=== PATIENT | female | born 1955 | race Caucasian/White ===

== ENCOUNTER 2019-09-14 15:39 | Emergency (ER) | payer MEDICARE, SELFPAY ==
--- NOTE | 2019-09-14 15:47 | DI.RAD.S_ITS ---
PROCEDURE: XR FOREARM RT 2V INDICATIONS: injury TECHNIQUE: 2 views of the forearm were acquired. COMPARISON: None. FINDINGS: Bones: No fractures or dislocations. No suspicious bony lesions. Soft tissues: No suspicious soft tissue calcifications or masses. IMPRESSION: No fracture or dislocation. If clinical symptoms persist or clinical suspicion for pathology is high, a repeat examination in 7-10 days, or advanced imaging such as CT or MRI is suggested for further evaluation. Dictated by: Gerardo Winslow M.D. on 09/14/2019 at 17:19 Approved by: Gerardo Winslow M.D. on 09/14/2019 at 17:21
[2019-09-14 15:48] VITALS: BP 153/83; PULSE 91; RESP 18; TEMP 36.9; O2SAT 96; BMI 19.8
--- NOTE | 2019-09-14 16:35 | ED_ITS ---
HPI - Extremity Injury (Upper) <Flory Doshi PA-C - Last Filed: 09/14/19 20:33> General Chief Complaint: Extremity Injury, Upper Stated Complaint: thinks Fx left arm Time Seen by Provider: 09/14/19 16:10 Source: patient Mode of arrival: Ambulatory History of Present Illness HPI narrative: This 64-year-old female was pruning a thorny tree this afternoon when she felt a puncture or pain around her left wrist area. She thinks that she may have a thorn embedded. She states this is tender to touch, but she is not having difficulty moving the wrist or hand. No weakness or paresthesia. She states she had a tetanus vaccine about a year ago. She denies any other injury Related Data Home Medications Medication Instructions Recorded Confirmed budesonide-formoterol [Symbicort] 2 puff INHALATION BID 09/14/19 fluticasone propion-salmeterol INHALATION 09/14/19 [AirDuo RespiClick] levothyroxine 75 mcg PO DAILY 09/14/19 09/14/19 venlafaxine 50 mg PO DAILY 09/14/19 09/14/19 Allergies Allergy/AdvReac Type Severity Reaction Status Date / Time Sulfa (Sulfonamide Allergy Verified 09/14/19 15:48 Antibiotics) Review of Systems <Flory Doshi PA-C - Last Filed: 09/14/19 20:33> Review of Systems ROS Unobtainable: All systems reviewed & are unremarkable except as noted in HPI and below Patient History <Flory Doshi PA-C - Last Filed: 09/14/19 20:33> Medical History (Updated 09/14/19 @ 18:07 by Flory Doshi PA-C) Heart murmur (Chronic) Hypothyroidism (Chronic) Surgical History (Updated 09/14/19 @ 16:48 by Flory Doshi PA-C) No history of previous surgery (Chronic) alcohol intake frequency: 0-2 drinks per day Substance Use Type: does not use Exam <Flory Dsohi PA-C - Last Filed: 09/14/19 20:33> Narrative Exam Narrative: GENERAL APPEARANCE: Patient sitting comfortably, in no distress. LUNGS: Clear to auscultation bilaterally. HEART: Rate and rhythm regular with soft systolic ejection murmur, normal S1 and S2, no S3 or S4. DERMATOLOGIC: Proximal to the left medial wrist border there is soft tissue prominence without any visible external foreign body. Moderately tender to touch. No erythema or drainage MUSCULOSKELETAL: Full range of motion of the left hand and wrist, technical recruiter strength 5/5 NEUROVASCULAR: Left upper extremity warm and pink, pulses intact, sensation grossly intact Initial Vital Signs Initial Vital Signs: Vital Signs Temperature 98.4 F 09/14/19 15:48 Pulse Rate 91 H 09/14/19 15:48 Respiratory Rate 18 09/14/19 15:48 Blood Pressure 153/83 H 09/14/19 15:48 Pulse Oximetry 96 09/14/19 15:48 <Yolanda Avila DO - Last Filed: 09/15/19 07:53> Initial Vital Signs Initial Vital Signs: Vital Signs Temperature 98.4 F 09/14/19 15:48 Pulse Rate 91 H 09/14/19 15:48 Respiratory Rate 18 09/14/19 15:48 Blood Pressure 153/83 H 09/14/19 15:48 Pulse Oximetry 96 09/14/19 15:48 Procedures <Flory Doshi PA-C - Last Filed: 09/14/19 20:33> Foreign Body OTHER Time Out Performed: no Site: left and upper extremity Description of foreign body: other (thorn) Sedation/Analgesia: other (local, 4cc 1% lidocaine with epi) Technique: removal with forceps and incision made to facilitate removal Confirmed by:: direct visualization (Approximately 1.5 cm long foreign removed. No other foreign body found with visualization, probing, and on irrigation), patient report and palpation Complications: none Post-procedure exam: awake, alert Neurovascular: normal distal pulse, distal light touch sensation intact, distal motor function normal, no signs of compartment syndrome and no change from pre-procedure Course <Flory Doshi PA-C - Last Filed: 09/14/19 20:33> Orders Ordered: Discontinued Medications Lidocaine/Epinephrine (Xylocaine 1% W/Epi) 1 ml SUBCUT NOW ONE Stop: 09/14/19 17:24 Last Admin: 09/14/19 18:10 Dose: 1 ml Documented by: BTONER Vital Signs Vital signs: Vital Signs - 8 hr 09/14/19 15:48 Temperature 98.4 F Pulse Rate 91 H Respiratory Rate 18 Blood Pressure 153/83 H Pulse Oximetry 96 <Yolanda Avila DO - Last Filed: 09/15/19 07:53> Orders Ordered: Discontinued Medications Lidocaine/Epinephrine (Xylocaine 1% W/Epi) 1 ml SUBCUT NOW ONE Stop: 09/14/19 17:24 Last Admin: 09/14/19 18:10 Dose: 1 ml Documented by: BTONER Vital Signs Vital signs: Vital Signs - 8 hr 09/14/19 15:48 Temperature 98.4 F Pulse Rate 91 H Respiratory Rate 18 Blood Pressure 153/83 H Pulse Oximetry 96 MDM - Extremity Injury (Upper) <Flory Doshi PA-C - Last Filed: 09/14/19 20:33> Imaging Data forearm: Radiologist's impression: [address] [address] XRay Report Signed Patient: Susana Garza DMR#: [id number] : 4Acct:[id number] Age/Sex: 64 / FDate of Service: 09/14/19 Loc: ED Accession Number: [id number] Procedure: XR forearm LT 2V Ordering Provider: Yolanda Avila D.O. PROCEDURE: XR FOREARM RT 2V INDICATIONS: injury TECHNIQUE: 2 views of the forearm were acquired. COMPARISON: None. FINDINGS: Bones: No fractures or dislocations. No suspicious bony lesions. Soft tissues: No suspicious soft tissue calcifications or masses. IMPRESSION: No fracture or dislocation. If clinical symptoms persist or clinical suspicion for pathology is high, a repeat examination in 7-10 days, or advanced imaging such as CT or MRI is suggested for further evaluation. Dictated by: Gerardo Winslow M.D. on 09/14/2019 at 17:19 Approved by: Gerardo iWnslow M.D. on 09/14/2019 at 17:21 Discharge Plan Departure Patient Disposition: Home Clinical Impression: Foreign body (FB) in soft tissue Discharge Date/Time: 09/14/19 18:17 Instructions: DI for Removal of Foreign Body From Skin Activity Restrictions/Additional Instructions: Please leave this wound open and use a warm pack tonight and in the morning to help express any remaining debris. You can apply a little antibiotic ointment and covered loosely. The wound will close on its own. Please monitor for any signs of infection as we talked about and return here or see her PCP right away if any concerns or acutely worsening symptoms. Thank you for your patience with our busy emergency department today Prescriptions: No Action fluticasone propion-salmeterol [AirDuo RespiClick] 113-14 mcg/actuation aerosol powdr breath activated INHALATION RF: 0 levothyroxine 75 mcg tablet 75 mcg PO DAILY RF: 0 venlafaxine 50 mg tablet 50 mg PO DAILY RF: 0 Symbicort 80-4.5 mcg/actuation HFA aerosol inhaler 2 puff INHALATION BID RF: 0 Referrals: Radha Vallejo ND [Non-Staff] -
[2019-09-14] MEDS: LIDOCAINE 1% W/EPI 1 ML SUBCUT (18:10)
--- NOTE | 2019-09-14 18:15 | PC.NURSE ---
Thorn removed from pts left forearm by Flory Doshi. Gauze applied to wound
== END 2019-09-14 18:17 | disposition home or self-care (01) ==
PROVIDERS: Emergency Provider Internal Medicine
DX: S61.542A Puncture wound with foreign body of left wrist, initial encounter (principal)
CPT/HCPCS: 10120; 73090; 99282; 99283

== ENCOUNTER 2020-02-17 15:06 | Emergency (ER) | payer MEDICARE, OTHER, SELFPAY ==
[2020-02-17 15:11] VITALS: BP 164/100; PULSE 200; RESP 24; TEMP 36.8; O2SAT 98; BMI 20.9
[2020-02-17 15:19] VITALS: BP 169/8; PULSE 104; RESP 20; TEMP 36.9; O2SAT 96
--- NOTE | 2020-02-17 15:30 | ED_ITS ---
HPI - Arrhythmia/Palpitations General Chief Complaint: Arrhythmia/Palpitations Stated Complaint: heart issues Time Seen by Provider: 02/17/20 15:12 Source: patient Mode of arrival: Ambulatory History of Present Illness HPI narrative: 65-year-old woman with a history of hypothyroidism presents with significantly rapid heart rate and a sensation of palpations. She had been out working in her yd for approximately 15 minutes doing some heavy work digging when she felt her heart began to race. This was not associated with pain, tightness, dyspnea, diaphoresis, dizziness or lightheadedness, nausea vomiting or diarrhea. She states she has been in her usual good health until this abrupt incident. Symptoms have been going on for approximately 45 minutes prior to arrival in the emergency department by private vehicle Related Data Home Medications Medication Instructions Recorded Confirmed levothyroxine 75 mcg PO DAILY 09/14/19 02/17/20 venlafaxine 37 mg PO DAILY 09/14/19 02/17/20 fluticasone propion-salmeterol See Rx Instructions .ROUTE .COMPLEX 02/17/20 02/17/20 Allergies Allergy/AdvReac Type Severity Reaction Status Date / Time Sulfa (Sulfonamide Allergy Verified 02/17/20 15:38 Antibiotics) Review of Systems Review of Systems Narrative: All systems reviewed and are unremarkable except as noted in HPI and below Patient History Medical History (Updated 02/17/20 @ 16:24 by Seema Forte MD) Heart murmur (Chronic) Hypothyroidism (Chronic) SVT (supraventricular tachycardia) (Acute) Surgical History No history of previous surgery (Chronic) Social History Smoking Status: Never smoker Smoking Status: Never smoker alcohol intake frequency: 0-2 drinks per day Substance Use Type: does not use Exam Narrative Exam Narrative: General: Healthy appearing, in no acute distress. Able to give a complete and coherent history. Well-nourished well-developed HEENT: Moist mucous membranes, normal sclera with reactive pupils, Neck: No JVD, supple Respiratory: Lungs are clear to auscultation, no wheezing no rales no rhonchi. Full and symmetrical air movement Cardiac: Very rapid heart rate Abdomen: Soft nontender good bowel tones, no flank pain Skin: Warm and dry, no rashes Neurologic: Grossly neurologically intact with no obvious asymmetries or abnorm alities Extremities: No trauma, well perfused Psych: Cooperative, appropriate insight and affect Initial Vital Signs Initial Vital Signs: Vital Signs Temperature 98.2 F 02/17/20 15:11 Pulse Rate 200 H 02/17/20 15:11 Respiratory Rate 24 02/17/20 15:11 Blood Pressure 164/100 H 02/17/20 15:11 Pulse Oximetry 98 02/17/20 15:11 Course Orders Ordered: ED Orders 02/17/20 15:10 Complete Blood Count AUTO DIFF Stat Comprehensive Metabolic Panel Stat Lipase Stat Thyroid Stimulating Hormone Stat Troponin & CK Cardiac Panel Stat 02/17/20 15:32 XR chest 1V Stat EKG-12 Lead Stat Discontinued Medications Adenosine (Adenocard) 6 mg IV NOW ONE Stop: 02/17/20 15:14 Last Admin: 02/17/20 15:38 Dose: 6 mg Documented by: JEIMY Adenosine (Adenocard) 12 mg IV NOW ONE Stop: 02/17/20 15:14 Last Admin: 02/17/20 16:40 Dose: Not Given Documented by: LANDON Sodium Chloride (Normal Saline 0.9%) 1,000 mls @ 1,000 mls/hr IV BOLUS ONE Stop: 02/17/20 16:31 Last Infusion: 02/17/20 16:40 Dose: 0 mls/hr Documented by: Admin: 02/17/20 15:37 Dose: 1,000 mls/hr Documented by: JEIMY Vital Signs Vital signs: Vital Signs - 8 hr 02/17/20 15:11 02/17/20 15:19 02/17/20 16:09 Temperature 98.2 F 98.4 F Pulse Rate 200 H 104 H 104 H Respiratory Rate 24 20 15 Blood Pressure 164/100 H Blood Pressure [Right Arm] 169/8 H Pulse Oximetry 98 96 98 02/17/20 16:13 Temperature Pulse Rate 107 H Respiratory Rate 12 Blood Pressure Blood Pressure [Right Arm] 125/82 Pulse Oximetry 98 MDM - Arrhythmia/Palpitations Medical Records Attestation: I reviewed the patient's medical records. Lab Data Attestation: I reviewed the patient's lab results. Result diagrams: 02/17/20 15:10 02/17/20 15:10 Labs: Lab Results 02/17/20 02/17/20 02/17/20 Range/Units 15:10 15:10 15:10 WBC 9.0 (4.5-11.0) X10^3/uL RBC 4.63 (4.0-5.2) X10^6/uL Hgb 14.7 (12.0-16.0) g/dL Hct 43.0 (36-46) % MCV 92.8 (80-100) fL MCH 31.7 (26-34) PG MCHC 34.1 (30-36) % RDW 13.5 (11.6-14.8) % Plt Count 288 (150-400) X10^3/uL Neut % (Auto) 51.4 (50-75) % Lymph % (Auto) 36.0 (25-40) % [place] % (Auto) 8.9 (3-14) % Eos % (Auto) 3.1 (2-4) % Baso % (Auto) 0.6 (0-2) % Neut # (Auto) 4600 (8411-8078) /uL Lymph # (Auto) 3300 (7318-0527) /uL [place] # (Auto) 800 (0-900) /uL Eos # (Auto) 300 (0-450) /uL Baso # (Auto) 100 (0-100) /uL Sodium 137 (137-145) mmol/L Potassium 4.1 (3.4-5.1) mmol/L Chloride 103 (98-107) mmol/L Carbon Dioxide 25 (22-32) mmol/L BUN 20 H (7-17) mg/dL Creatinine 0.75 (0.52-1.04) mg/dL Estimated GFR > 60.0 (>60) mL/min BUN/Creatinine Ratio 26.7 H (6-22) Glucose 163 H (80-110) mg/dL Calcium 9.2 (8.4-10.2) mg/dL Total Bilirubin 0.5 (0.2-1.3) mg/dL AST 50 H (14-36) IU/L ALT 32 (<35) IU/L Alkaline Phosphatase 95 (38-126) U/L Total Creatine Kinase 85 (30-135) U/L CK-MB (CK-2) TNP CK-MB (CK-2) Rel Index TNP Troponin I < 0.012 (0.01-0.034) ng/mL Total Protein 8.0 (6.3-8.2) g/dL Albumin 4.5 (3.5-5.0) g/dL Globulin 3.5 (1.7-4.1) g/dL Albumin/Globulin Ratio 1.3 (1.0-2.8) Lipase 168 (23-300) U/L TSH 0.83 (0.47-4.68) uIU/mL Imaging Data Chest x-ray: Radiologist's Impresson: IMPRESSION: No acute cardiopulmonary process is seen. Dictated by: Bony Olson M.D. on 02/17/2020 at 15:01 ECG Data Attestation: I personally reviewed and interpreted this ECG as follows: Interpretation: EKG 1.: SVT at a rate of 206 EKG 2.: Post 6 mg of adenosine Sinus tach at a rate of 115 with sinus arrhythmia. Shortened HI interval Diffuse nonspecific ST T wave changes 3.: Sinus tach at a rate of 102 HI interval is slightly longer at [address] depression multiple leads, mild MDM Narrative Medical decision making narrative: 65-year-old woman presents with 1st episode of SVT. Going at a rate of over 200 for 45 minutes without significant symptoms other than the sensation of palpitation. Converted to sinus tachycardia with 6 mg of adenosine. An additional L of fluid has help slow her heart rate down to the 100 range. Chest x-ray is unremarkable without suggestion of infiltrate or significant cardiomyopathy. Labs are equally reassuring No evidence of acute coronary syndrome or other life-threatening pathology at this time. Consistent with a single episode of supraventricular tachycardia responding nicely to initial dose of adenosine. At this point she is safe for home discharge Discharge Plan Departure Patient Disposition: Home Clinical Impression: SVT (supraventricular tachycardia) Discharge Date/Time: 02/17/20 16:41 Instructions: DI for Paroxysmal Supraventricular Tachycardia Activity Restrictions/Additional Instructions: Thank you for coming in today He had an episode of SVT (supraventricular tachycardia) today. I have included additional details on what this is and ways to try to stop it if you notice id recurring at some point in the future. If at any time it lasts for as long as it did today, please return to the emergency room. You responded nicely to a total of 6 mg of adenosine here in the emergency department. If your lab work, chest x-ray and EKGs do not suggest any life-threatening path ology or reasons for this current SVT. Incidentally noted on blood work today was a moderately high blood sugar. In this setting the recommendation is to have that rechecked and discuss with your primary care physician Please follow-up with your primary care physician and continue all medications as prescribed. I wish you the best Prescriptions: No Action levothyroxine 75 mcg tablet 75 mcg PO DAILY RF: 0 venlafaxine 50 mg tablet 37 mg PO DAILY RF: 0 fluticasone propion-salmeterol 113-14 mcg/actuation Aerosol Powdr Breath Activated See Rx Instructions .ROUTE .COMPLEX RF: 0
--- NOTE | 2020-02-17 15:32 | DI.RAD.S_ITS ---
PROCEDURE: XR CHEST 1V INDICATIONS: SVT TECHNIQUE: One view of the chest was acquired. COMPARISON: None. FINDINGS: Surgical changes and devices: A defibrillator lead is seen. Cardiac monitoring leads are seen. Lungs and pleura: Lungs are clear. No pleural effusions or pneumothorax. Mediastinum: Mediastinal contours appear normal. Heart size is normal. Bones and chest wall: No suspicious bony lesions. Age-appropriate bony degenerative changes are seen. Overlying soft tissues appear unremarkable. IMPRESSION: No acute cardiopulmonary process is seen. Dictated by: Bony Olson M.D. on 02/17/2020 at 15:01 Approved by: Bony Olson M.D. on 02/17/2020 at 15:02
--- NOTE | 2020-02-17 15:33 | PC.NURSE ---
Second EKG done post cardioversion at 1519.
[2020-02-17] MEDS: SODIUM CHLORIDE 0.9% 1,000 ML 1000 ML IV (15:37)
[2020-02-17] MEDS: ADENOSINE 6 MG/2 ML VIAL IV (15:38)
[2020-02-17 15:46] LABS: Alanine Aminotransferase 32 IU/L (<35); Albumin 4.5 g/dL (3.5-5.0); Albumin Globulin Ratio 1.3 (1.0-2.8); Alkaline Phosphatase 95 U/L (38-126); Aspartate Aminotransferase 50 IU/L (14-36); BUN Creatinine Ratio 26.7 (6-22); Bilirubin Total 0.5 mg/dL (0.2-1.3); Blood Urea Nitrogen 20 mg/dL (7-17); Calcium 9.2 mg/dL (8.4-10.2); Carbon Dioxide 25 mmol/L (22-32); Chloride 103 mmol/L (98-107); Creatine Kinase 85 U/L (30-135); Estimated Glomerular Filt Rate > 60.0 mL/min (>60); Globulin 3.5 g/dL (1.7-4.1); Glucose 163 mg/dL (80-110); HEMOLYSIS 35 (0-50); Lipase 168 U/L (23-300); Potassium 4.1 mmol/L (3.4-5.1); Sodium 137 mmol/L (137-145)
[2020-02-17 15:47] LABS: Add Manual Diff / Slide Review NO; Basophils Absolute Auto 100 /uL (0-100); Basophils Percent Auto 0.6 % (0-2); Eosinophils Absolute Auto 300 /uL (0-450); Eosinophils Percent Auto 3.1 % (2-4); Hemoglobin 14.7 g/dL (12.0-16.0); Lymphocytes Absolute Auto 3300 /uL (1100-4500); Mean Corpuscular HGB Conc 34.1 % (30-36); Mean Corpuscular Hemoglobin 31.7 PG (26-34); Mean Corpuscular Volume 92.8 fL (80-100); Monocytes Absolute Auto 800 /uL (0-900); Monocytes Percent Auto 8.9 % (3-14); Neutrophils Absolute Auto 4600 /uL (1500-7000); Neutrophils Percent Auto 51.4 % (50-75); Platelet Count 288 X10^3/uL (150-400); Red Blood Cell Count 4.63 X10^6/uL (4.0-5.2); Red Cell Distribution Width 13.5 % (11.6-14.8)
[2020-02-17 15:58] LABS: Troponin I < 0.012 ng/mL (0.01-0.034)
[2020-02-17 16:09] VITALS: PULSE 104; RESP 15; O2SAT 98
[2020-02-17 16:13] VITALS: BP 125/82; PULSE 107; RESP 12; O2SAT 98
--- NOTE | 2020-02-17 16:13 | PC.NURSE ---
Patient resting quietly in stretcher with no complaints. VSS. HR 107 NSR.
[2020-02-17 16:17] LABS: Thyroid Stimulating Hormone 0.83 uIU/mL (0.47-4.68)
== END 2020-02-17 16:41 | disposition home or self-care (01) ==
PROVIDERS: Emergency Provider Emergency Medicine
DX: I47.1 Supraventricular tachycardia (principal)
CPT/HCPCS: 36415; 71045; 80053; 82550; 83690; 84443; 84484; 85025; 93005; 96361; 96374; 99284; J0153

== ENCOUNTER → 2021-05-19 09:13 | Outpatient (CLI) | payer MEDICARE, OTHER, SELFPAY ==
[2021-05-19 11:10] LABS: Cholesterol 242 mg/dL (140-199); HDL Cholesterol 110 mg/dL (40-60); LDL Cholesterol Calculated 122 mg/dL (<100); Triglycerides 48 mg/dL (35-150)
== END ==
PROVIDERS: PCP Family Medicine; Referring Provider Family Medicine; Visit Provider Family Medicine
DX: E03.9 Hypothyroidism, unspecified (principal); F41.9 Anxiety disorder, unspecified; I47.1 Supraventricular tachycardia; R73.9 Hyperglycemia, unspecified
CPT/HCPCS: 36415; 80061

== ENCOUNTER → 2023-08-16 14:40 | Outpatient (CLI) | payer MEDICARE, BC, SELFPAY ==
--- NOTE | 2023-08-16 | DI.MG.S_ITS ---
BILATERAL DIGITAL SCREENING MAMMOGRAM 3D/2D WITH CAD: 08/16/2023 CLINICAL: Routine screening. Family history of breast cancer. Comparison is made to exams dated: 03/04/2022 mammogram, 01/30/2021 mammogram, and 12/19/2019 mammogram - outside location. Both breasts are heterogeneously dense, which may obscure small masses (category c / 51-75% glandular tissue). Current study was also evaluated with a Computer Aided Detection (CAD) system. No significant masses, calcifications, or other findings are seen in either breast. There has been no significant interval change. IMPRESSION: NEGATIVE There is no mammographic evidence of malignancy. A 1 year screening mammogram is recommended. Based on the Tyrer Cuzick model (a risk assessment model) the patient's lifetime risk is 9.6% and her 10 year risk is 5.7%. According to the ACR, ACS, and NCCN guidelines, an annual breast MRI exam along with mammogram is recommended if the patient's lifetime risk is 20% or greater. This exam was interpreted at Station ID: [id number]. NOTE: For mammograms, a report in lay terms will be sent to the patient. Approximately 15% of breast malignancies will not be visualized mammographically. In the management of a palpable breast mass, a negative mammogram must not discourage biopsy of a clinically suspicious lesion. Electronically Signed By: Jensen pulido/verena:08/17/2023 08:34:00 letter sent: Normal Exam ACR BI-RADS Category 1: Negative [id number]
--- NOTE | 2023-08-16 14:43 | DI.US.S_ITS ---
PROCEDURE: US THYROID INDICATIONS: THYROID NODULE TECHNIQUE: Real-time scanning was performed of the thyroid gland, with image documentation. COMPARISON: None. FINDINGS: Right: Thyroid lobe measures 4.3 x 1.6 x 1.6 cm, and is homogeneous in echotexture. Left: Thyroid lobe measures 3.8 x 1.1 x 1.2 cm, and is homogenous in echotexture. Isthmus: 1.2 mm thick. Nodule number: 1 Location: Right inferior pole Size: 0.9 x 1.1 x 0.8 cm. Composition: Solid Echogenicity: Isoechoic Shape: Taller than wide Margins: Halo/lobulated Echogenic foci: None Total points: 8 ACR TI-RADS category: 5 IMPRESSION: 0.9 x 1.1 x 0.8 cm nodule in the inferior pole of the right thyroid TI-RADS 5. Recommend FNA. ACR TI-RADS definitions and recommendations: TI-RADS 1 (benign): 0 points. FNA not needed. TI-RADS 2 (not suspicious): 2 points. FNA not needed. TI-RADS 3 (mildly suspicious): 3 points. * FNA if 2.5 cm or larger, follow up if 1.5 cm or larger (at 1, 3, and 5 years). TI-RADS 4 (moderately suspicious): 4-6 points. * FNA if 1.5 cm or larger, follow up if 1 cm or larger (at 1, 2, 3, and 5 years). TI-RADS 5 (highly suspicious): 7 points or more. * FNA if 1 cm or larger, follow up if 0.5 cm or larger (every year for 5 years). Dictated by: Harpreet Galindo M.D. on 08/16/2023 at 15:48 Approved by: Harpreet Galindo M.D. on 08/16/2023 at 15:51
--- NOTE | 2023-08-16 14:43 | DI.RAD.S_ITS ---
Bone Density Report Name: REINALDO DOLL Age: 68 Sex: Female Ethnicity: White Date of : 1955 Indication: postmenopausal; screening for osteoporosis; Referring Provider: TAE LUI Study: Bone densitometry was performed. Exam Date: August 16, 2023 Accession number: [id number] Bone Density: Region BMD T-score Z-score Classification AP Spine(L1-L4) 1.026 -0.2 1.9 Normal Femoral Neck (Left) 0.637 -1.9 -0.1 Osteopenia Total Hip (Left) 0.844 -0.8 0.7 Normal Femoral Neck (Right) 0.684 -1.5 0.3 Osteopenia Total Hip (Right) 0.839 -0.8 0.6 Normal Total Hip Mean 0.841 -0.8 0.7 Normal Total Forearm (Left) 0.616 0.7 2.6 Normal 1/3 Forearm (Left) 0.684 -0.2 1.9 Normal UD Forearm (Left) 0.458 0.3 1.7 Normal World Health Organization criteria for BMD impression classify patients as: Normal (T-score at or above -1.0), Osteopenia (T-score between -1.0 and -2.5), or Osteoporosis (T-score at or below -2.5). 10-year Fracture Risk: FRAX not reported because: Treated for osteoporosis Impression: The patient has low bone mass, based on the Left Femoral Neck T-score. Discussion: It is important to ask patients whether they are taking their medications and to encourage continued and appropriate compliance with their osteoporosis therapies to reduce fracture risk. It is also important to review their risk factors and encourage appropriate calcium and vitamin D intakes, exercise, fall prevention and other lifestyle measures. Follow-Up: Consider a repeat BMD and Vertebral Fracture Assessment (VFA) exam in 2 years or sooner if medically necessary, to reassess this patient's status. Reported by: FELIZ VELASQUEZ M.D. on 08/16/2023 4:00:00 PM.
--- NOTE | 2023-08-16 15:40 | DI.RAD.S_ITS ---
PROCEDURE: XR FOOT LT MIN 3V INDICATIONS: bilateral great toe pain TECHNIQUE: 3 views of the foot were acquired. COMPARISON: None. FINDINGS: Bones: No fractures or dislocations. Mild degenerative changes of the interphalangeal joints. Degenerative changes of the 1st metatarsophalangeal joint with joint space narrowing, subchondral sclerosis, and osteophytes. No suspicious bony lesions. Soft tissues: No tibiotalar joint effusion. Achilles tendon appears normal. 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 Dictated by: Harpreet Galindo M.D. on 08/16/2023 at 16:57 Approved by: Harpreet Galindo M.D. on 08/16/2023 at 16:59
--- NOTE | 2023-08-16 15:40 | DI.RAD.S_ITS ---
PROCEDURE: XR FOOT RT MIN 3V INDICATIONS: bilateral great toe pain TECHNIQUE: 3 views of the foot were acquired. COMPARISON: None. FINDINGS: Bones: No fractures or dislocations. Mild degenerative changes of the interphalangeal joints. Severe degenerative changes of the 1st metatarsophalangeal joint with joint space narrowing, subchondral sclerosis, and osteophytes. No suspicious bony lesions. Soft tissues: No tibiotalar joint effusion. Achilles tendon appears normal. 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 Dictated by: Harpreet Galindo M.D. on 08/16/2023 at 17:00 Approved by: Harpreet Galindo M.D. on 08/16/2023 at 17:00
== END ==
PROVIDERS: PCP Family Medicine; Referring Provider Family Medicine; Visit Provider Family Medicine
DX: Z12.31 Encounter for screening mammogram for malignant neoplasm of breast; E03.9 Hypothyroidism, unspecified; E04.1 Nontoxic single thyroid nodule; Z78.0 Asymptomatic menopausal state; M85.80 Other specified disorders of bone density and structure, unspecified site; M79.675 Pain in left toe(s); M79.674 Pain in right toe(s); M85.852 Other specified disorders of bone density and structure, left thigh; M85.851 Other specified disorders of bone density and structure, right thigh; Z80.3 Family history of malignant neoplasm of breast
CPT/HCPCS: 73630; 76536; 77063; 77067; 77080; 77081

== ENCOUNTER → 2023-09-13 14:28 | Outpatient (CLI) | payer MEDICARE, BC, SELFPAY ==
--- NOTE | 2023-09-13 | PATH_ITS ---
Note [facility] Accession Number: [id number] TESTS RESULT FLAG UNITS REF RANGE LAB Clinician Provided Cytology Information No. of containers..01 Other (Miscellaneous) No. of containers..02 Previously Prepared Cytology Slide Source: INFERIOR RIGHT THYROID NODULE DIAGNOSIS: INFERIOR RIGHT THYROID NODULE INADEQUATE, INSUFFICIENT CELLS FOR STUDY. BETHESDA CATEGORY I. NONDIAGNOSTIC: OBSCURING BLOOD. Pathologist ICD10: E04.1 Signed out by: Renata Worthington MD, Pathologist NPI- [id number] Performed by: Rpuerto Lopez, Therapy Assistant ([facility]) Gross description: 25 CC, COLORLESS, CLEAR RECEIVED IN [employer] WHITE CAP CONTAINER. R RECEIVED 6 ALCOHOL FIXED SLIDES IN 2 GREEN COFFINS. RECEIVED 6 STAINED SLIDES IN 2 SLIDE HOLDERS. RECEIVED 1 RNA VIAL. : 06/07/2025 /JUSTINE 09/14/2023 1053 Local FLAG LEGEND: L-Low Normal,H-High Normal,LL-Alert Low,HH-Alert High <-Panic Low,>-Panic High,A-Abnormal,AA-Critical Abnormal Performed at: 01 =[facility] [address], [place] [address] Jose Eduardo Boo MD, Performed at: 01 [facility] [address], [place], [place] [id number] MD Jose Eduardo Boo MD Phone: [phone]
--- NOTE | 2023-09-13 14:30 | DI.US.S_ITS ---
PROCEDURE: US FINE NEEDLE ASPIRATION INDICATIONS: RIGHT THYROID NODULE TECHNIQUE: The indications, alternatives, benefits, risks, and complications of the procedure were explained to the patient. Written informed consent was obtained and placed in the chart. The area of interest was examined sonographically and a site was chosen for ultrasound guided percutaneous sampling. The skin was prepared and draped in the usual fashion, and anesthetized with 1% lidocaine infiltrated from the skin down to the lesion. Multiple passes were then performed, with contents emptied into an appropriate pathology specimen container. A bandage was applied to the area of access at completion of the study. COMPARISON: [facility], , THYROID, 08/16/2023, 15:05. FINDINGS: Location(s) of lesion(s) sampled: Right inferior nodule measuring 0.9 cm [place]: 25 gauge hypodermic needles. Number of passes: 6 Medications: 1% lidocaine for local anaesthesia. Complications: None. IMPRESSION: Successful ultrasound-guided right inferior nodule fine needle aspiration, with cytology results pending. Dictated by: Jensen Akins M.D. on 09/14/2023 at 20:42 Approved by: Jensen Akins M.D. on 09/14/2023 at 20:43
== END ==
PROVIDERS: PCP Family Medicine; Referring Provider Registered Nurse Diabetes Educator; Visit Provider Registered Nurse Diabetes Educator
DX: E04.1 Nontoxic single thyroid nodule (principal)
CPT/HCPCS: 10005

== ENCOUNTER → 2023-12-31 14:42 | Outpatient (CLI) | payer MEDICARE, OTHER, SELFPAY ==
[2024-01-04 17:02] LABS: Calprotectin, Stool 11 ug/g (0-120)
[2024-01-06 07:36] LABS: Lactoferrin, Fecal Quant <1.00 ug/mL(g) (0.00-7.24)
[2024-01-13 09:31] LABS: Pancreatic Elastase, Fecal <50 (>200)
== END ==
PROVIDERS: PCP Family Medicine; Referring Provider Family Medicine; Visit Provider Family Medicine
DX: K52.9 Noninfective gastroenteritis and colitis, unspecified (principal); E03.9 Hypothyroidism, unspecified
CPT/HCPCS: 82656; 83631; 83993

== ENCOUNTER 2024-02-15 09:27 | Day surgery (SDC) | payer MEDICARE, OTHER, SELFPAY ==
--- NOTE | 2024-02-15 | PATH_ITS ---
[facility] Accession Number: [id number] No. of containers..01 Tissue . 01 Material submitted: . colon - RANDOM COLON . 01 Diagnosis: RANDOM COLON: Collagenous colitis. STO 02/18/2024 1435 Local . 01 Electronically signed: . Jose Eduardo Boo MD, Pathologist NPI- [id number] . 01 Gross description: . RANDOM COLON: Received in formalin are 4 fragment(s) of de león, soft tissue measuring 0.2 x 0.2 x 0.2 cm to 0.5 x 0.2 x 0.1 cm submitted entirely in 1 cassette(s) /KATLYN 02/18/2024 [facility] Local . 01 Pathologist provided ICD-10: K52.89 . 01 CPT . 195779 Specimen Comment: A courtesy copy of this report has been sent to [phone] Performed at: 01 [facility] [address] [place] [address], [place], [place] [id number] MD Jose Eduardo Boo MD Phone: [phone]
[2024-02-15 10:00] VITALS: BP 135/82; PULSE 80; RESP 12; TEMP 36.4; O2SAT 100
[2024-02-15] MEDS: LACTATED RINGERS 1,000 ML 150 ML IV (10:05)
--- NOTE | 2024-02-15 10:40 | PM.HP.1 ---
History of Present Illness History of Present Illness Date Patient Seen: 02/15/24 Time Patient Seen: 10:40 Chief complaint: [facility] Narrative: 68-year-old woman here for screening colonoscopy. She had a previously normal colonoscopy 10 years ago. She reports having chronic diarrhea for past 10 years. Nonbloody. No family history of intestinal malignancy or inflammatory bowel disease. ON LICENSE OF [facility] Medical History Chronic diarrhea Welcome to Medicare preventive visit Asthma (~2015) Allergies (~1971) Osteopenia (~2018) Foot pain (~2000) Mumps (~1961) Measles (~1958) Herpes (~1979) Genital warts (~1981) Hemorrhoid (~1999) GERD (gastroesophageal reflux disease) (~2004) Thyroid nodule (~2015) Overactive bladder (~2020) Persistent mood [affective] disorder, unspecified SVT (supraventricular tachycardia) (~2019) Heart murmur Hypothyroidism (~2015) Surgical History Anesthesia History of nasal surgery (~1972) History of arthroscopic knee surgery (~1990) No history of previous surgery Family History Father Cancer Mother Hypertension Hyperlipidemia Brother Hyperlipidemia Mental health problem Sister Skin cancer History of heart disease Hyperlipidemia Grandfather No problems noted. Grandmother Stroke Grandmother Diabetes mellitus Social History Smoking Status: Never smoker Meds Home Medications and Allergies Home Medications Medication Instructions Recorded Confirmed Type albuterol 90 mcg/actuation aerosol 90 mcg inhalation DAILY asthma 04/16/22 02/15/24 History inhaler fluticasone propionate 44 1 puff inhalation BID 04/16/22 02/15/24 History mcg/actuation HFA aerosol inhaler (Flovent HFA) metoprolol tartrate 25 mg tablet 25 mg PO DAILY 06/16/22 02/15/24 History desvenlafaxine succinate 50 mg 50 mg PO DAILY #90 tabs 11/26/23 02/15/24 Rx tablet,extended release 24 hr lorazepam 0.5 mg tablet 0.5 mg PO DAILY PRN severe anxiety 11/26/23 02/15/24 Rx or sleep #10 tabs levothyroxine 75 mcg tablet 75 mcg PO DAILY #90 tabs 12/20/23 02/15/24 Rx lipase 10,500-protease 2 cap PO TID #180 caps 01/17/24 02/15/24 Rx 35,500-amylase 61,500 unit capsule,delayed rel (Pancreaze) Allergies Allergy/AdvReac Type Severity Reaction Status Date / Time Sulfa (Sulfonamide AdvReac Intermediate Hives Verified 02/15/24 09:48 Antibiotics) Exam Vital Signs (past 8 hours): - 02/15/24 10:00 Temperature 97.5 F L Pulse Rate 80 Respiratory Rate 12 Blood Pressure 135/82 Pulse Oximetry 100 Oxygen Delivery Method Room Air Oxygen Delivery Method Room Air Narrative Exam Narrative: General adult woman alert oriented no acute distress Chest nonlabored respiration Extremities warm well perfused Assessment & Plan Assessment & Plan narrative: The patient requires colorectal screening and colonoscopy is recommended. Technical details were discussed. Risks, benefits, alternatives explained. Risks including but not limited to myocardial infarction, aspiration, bleeding, pain, missed lesion, incomplete examination, need for further radiographic studies, colonic perforation, and need for major abdominal surgery were discussed. All questions were answered to their satisfaction, and they are in agreement with this plan.
[2024-02-15 11:12] VITALS: BP 105/56; PULSE 76; RESP 13; TEMP 36.7; O2SAT 92
--- NOTE | 2024-02-15 11:14 | P.OP.COLON_ITS ---
Operative Date/Time/Diagnoses Date of procedure: 02/15/24 Time of procedure: 11:14 Pre-op diagnosis: Colorectal screening Procedure & Clinicians Study performed: Screening colonoscopy Same procedure as scheduled: Yes Indications: Colorectal screening Surgeon: Juan David Garcia Procedure Notes Procedure in detail: The history and physical was performed/updated and the patient is ASA class is 2. The procedure was discussed in detail with the patient. Potential risks co mplications including infection, bleeding, missed diagnosis, perforation, need for surgery, and were explained. Their questions were answered and informed consent was obtained. Patient was brought to the procedure room and placed standard monitoring equipment. The patient's vital signs were monitored continuously throughout the entire procedure. Prior to starting time-out was performed. The patient was placed in the left lateral recumbent position. Procedural sedation was administered by anesthesia. Examination began with a thorough inspection of the perianal area there was no evidence of fissures, fistulae, external hemorrhoids or cutaneous malignancy. The colonoscopy scope was then placed into the anal canal and was advanced to the cecum, which was identified by the ileocecal valve, the appendiceal orifice and the confluence of the taenia. The scope was then slowly withdrawn examining colon thoroughly in all directions, irrigating it of any residual stool. The scope was retroflexed within the rectum The patient tolerated the procedure well. They will be discharged once criteria are met. The prep was of good/excellent quality. The withdrawl time was 6 minutes. FINDINGS * No masses or polyps. * Mild diffuse colitis. No active hemorrhage. Random colonic biopsies performed with forceps. Specimen(s): other (Random colon biopsy) Impression: Mild colitis Post-procedure Plan for aftercare: We will notify with biopsy results Disposition: same day surgery
[2024-02-15 11:17] VITALS: BP 110/62; PULSE 73; RESP 14; O2SAT 94
[2024-02-15 11:22] VITALS: BP 126/74; PULSE 77; RESP 16; O2SAT 99
[2024-02-15 11:28] VITALS: BP 138/91; PULSE 70; RESP 14; TEMP 36.7; O2SAT 96
== END 2024-02-15 11:43 | disposition home or self-care (01) ==
PROVIDERS: PCP Family Medicine; Referring Provider Surgery; Visit Provider Surgery
PROC: 0DJD8ZZ Inspection of Lower Intestinal Tract, Via Natural or Artificial Opening Endoscopic (ICD-10-PCS; CPT 45378; principal; 2024-02-15 10:15)
DX: Z12.11 Encounter for screening for malignant neoplasm of colon (principal); K52.89 Other specified noninfective gastroenteritis and colitis
CPT/HCPCS: 45380; J2704

== ENCOUNTER → 2024-02-28 13:39 | Outpatient (CLI) | payer MEDICARE, OTHER, SELFPAY ==
[2024-03-02 16:32] LABS: Calprotectin, Stool 24 ug/g (0-120)
[2024-03-03 07:56] LABS: Lactoferrin, Fecal Quant <1.00 ug/mL(g) (0.00-7.24)
== END ==
PROVIDERS: PCP Family Medicine; Referring Provider Family Medicine; Visit Provider Family Medicine
DX: K52.9 Noninfective gastroenteritis and colitis, unspecified (principal); E03.9 Hypothyroidism, unspecified
CPT/HCPCS: 82656; 83631; 83993; 87045

== ENCOUNTER → 2024-08-28 12:13 | Outpatient (CLI) | payer MEDICARE, OTHER, SELFPAY ==
--- NOTE | 2024-08-28 12:14 | DI.US.S_ITS ---
PROCEDURE: US THYROID INDICATIONS: Thyroid nodule TECHNIQUE: Real-time scanning was performed of the thyroid gland, with image documentation. COMPARISON: Merged With [facility], US, US THYROID, 08/16/2023, 15:05. FINDINGS: Thyroid: Right lobe measures 3.9 x 1.5 x 1.1 cm. Left lobe measures 3.8 x 0.9 x 1.3 cm. Isthmus is 0.2 cm thick. Echotexture is homogeneous. Nodule number: 1 Location: Right inferior Size: 0.8 x 0.9 x 0.6 cm compared to 0.9 x 1.1 x 0.8 cm. Composition: Solid Echogenicity: Isoechoic Shape: wider than tall. Margins: Smooth Echogenic foci: None Total points: 3 ACR TI-RADS category: 3 IMPRESSION: Stable nodular focus not meeting criteria for follow-up. ACR TI-RADS definitions and recommendations: TI-RADS 1 (benign): 0 points. FNA not needed. TI-RADS 2 (not suspicious): 2 points. FNA not needed. TI-RADS 3 (mildly suspicious): 3 points. * FNA if 2.5 cm or larger, follow up if 1.5 cm or larger (at 1, 3, and 5 years). TI-RADS 4 (moderately suspicious): 4-6 points. * FNA if 1.5 cm or larger, follow up if 1 cm or larger (at 1, 2, 3, and 5 years). TI-RADS 5 (highly suspicious): 7 points or more. * FNA if 1 cm or larger, follow up if 0.5 cm or larger (every year for 5 years). Dictated by: Tessie Georges M.D. on 08/28/2024 at 14:52 Approved by: Tessie Georges M.D. on 08/28/2024 at 14:54
== END ==
PROVIDERS: PCP Family Medicine; Referring Provider Family Medicine; Visit Provider Family Medicine
DX: E04.1 Nontoxic single thyroid nodule (principal)
CPT/HCPCS: 76536

== ENCOUNTER → 2024-09-01 09:15 | Outpatient (CLI) | payer MEDICARE, OTHER, SELFPAY ==
--- NOTE | 2024-09-01 09:17 | DI.ECHO.S_ITS ---
[facility] : : [address] : : [place] : : [id number] : : Phone: [phone] Echocardiogram Report + + :Name: REINALDO DOLL Study Date: 09/01/2024 Height: 66.5 in: :[facility] ReadingLocation: Weight: 133 lb : : Gender: Female BSA: 1.7 m2 : :: 1955 Age: 69 yrs BP: 125/73 mmHg: :Reason For Study: SUPRAVENTRICULAR TACHYCARDIA : :Ordering Physician: HU, : :TAE Performed By: Marga Arana : :Referring: TAE LUI : + + Interpretation Summary 1. The left ventricular contractility is normal. Estimated ejection fraction is greater than 60% with no segmental wall motion abnormalities. No LVH. Unable to comment on diastolic function. 2. The right ventricle contractility is normal. 3. All cardiac chambers are of normal size. 4. Trace to mild mitral regurgitation. 5. Mild aortic valvular stenosis with mean gradient of 12.9 mmHg and dimensionless index of 0.53. 6. No obvious intracardiac shunts. 7. No obvious intracardiac masses nor thrombi. 8. No hemodynamically significant pericardial effusion. 9. Low right-sided filling pressures. Conclusion: Normal biventricular systolic function with mild valvular heart disease. When compared with previous echocardiogram, there is now mild aortic valvular stenosis. Procedure: A two-dimensional transthoracic echocardiogram with color flow and Doppler was performed. The study quality was technically adequate. Comparison is made with the echocardiogram of 11/29/2018. The patient was in sinus rhythm with heart rates between 67-75 bpm during the exam. Left Ventricle: The left ventricle is normal in size and wall thickness. The ejection fraction is estimated to be 60-65%. Right Ventricle: The right ventricle is normal in size and function. Atria: The left atrial size is normal. Right atrial size is normal. There is no Doppler evidence for an interatrial shunt. Mitral Valve: The mitral valve is normal in structure and function. There is mild mitral regurgitation. Aortic Valve: The aortic valve is mildly calcified. There is mild aortic stenosis. The peak aortic velocity is 2.4 m/sec. The aortic valve mean gradient is 13 mmHg. The calculated aortic valve area is 1.5 cm2. There is trace aortic regurgitation. Tricuspid Valve: The tricuspid valve is normal in structure and function. There is trace tricuspid regurgitation. The right ventricular systolic pressure is estimated to be at least 35 mmHg based on an estimated right atrial pressure of 3 mm Hg. Pulmonic Valve: The pulmonic valve is not well visualized. There is no pulmonic valvular regurgitation. Great Vessels: The aortic root is normal size. The dimensions of the ascending aorta are normal. The IVC is of normal diameter and collapses greater than 50% with a sniff. This suggests a low right atrial pressure of 3 mm Hg. Pericardium/ Pleura There is no pericardial effusion. There is no pleural effusion. MMode/2D Measurements & Calculations LVIDd: 4.4 cm LVOT diam: 2.0 cm LVIDs: 2.7 cm Ao root diam: 2.9 cm FS: 38.9 % asc Aorta Diam: 2.8 cm IVSd: 0.63 cm Ao Arch Diam (Prox Trans): 2.4 cm LVPWd: 0.71 cm LV momin. diameter/BSA (cm/m^2): 2.6 LV sys. diameter/BSA (cm/m^2): 1.6 LA A2 area: 14.8 cm2 RA long axis: 4.4 cm LA A4 area: 16.4 cm2 RA area: 13.5 cm2 LA length (vol): 4.5 cm RA vol: 35.4 ml LA vol: 46.2 ml RA : 20.9 ml/m2 LA vol index: 27.3 ml/m2 IVC diam: 1.8 cm RVD1 (basal): 3.8 cm RVD2 (mid): 2.5 cm TAPSE: 2.2 cm Doppler Measurements & Calculations Ao V2 max: 243.1 cm/sec LVOT Max Jarrod: 123.0 cm/sec Ao V2 mean: 167.1 cm/sec LV V1 max P.1 mmHg Ao max P.6 mmHg LV V1 VTI: 29.0 cm Ao mean P.9 mmHg TRANG(I,D): 1.6 cm2 Ao V2 VTI: 55.1 cm TRANG(V,D): 1.5 cm2 sev ratio: 0.53 TRANG indexed to BSA (cm^2/m^2): 0.93 MV E max jarrod: 113.4 cm/sec TR max jarrod: 280.4 cm/sec MV A max jarrod: 57.9 cm/sec TR max P.5 mmHg MV E/A: 2.0 PA pr(Accel): 32.8 mmHg Med Peak E' Jarrod: 9.9 cm/sec E/E' med: 11.4 Lat Peak E' Jarrod: 8.0 cm/sec E/E' lat: 14.2 E/e' average: 12.8 MV dec time: 0.15 sec MVA(VTI): 2.8 cm2 MV V2 mean: 68.9 cm/sec SV(LVOT): 86.8 ml MV mean P.2 mmHg MV V2 VTI: 31.2 cm Reading Physician:
--- NOTE | 2024-09-01 09:17 | DI.MG.S_ITS ---
BILATERAL DIGITAL SCREENING MAMMOGRAM 3D/2D WITH CAD: 09/01/2024 CLINICAL: Routine screening. Family history of breast cancer. Comparison is made to exams dated: 08/16/2023 mammogram - [facility], 03/04/2022 mammogram, and 01/30/2021 mammogram - outside location. The breasts are heterogeneously dense, which may obscure small masses (category c / 51-75% glandular tissue). Current study was also evaluated with a Computer Aided Detection (CAD) system. No significant masses, calcifications, or other findings are seen in either breast. There has been no significant interval change. IMPRESSION: NEGATIVE There is no mammographic evidence of malignancy. A 1 year screening mammogram is recommended. Based on the Tyrer Cuzick model (a risk assessment model) the patient's lifetime risk is 9.1% and her 10 year risk is 5.8%. According to the ACR, ACS, and NCCN guidelines, an annual breast MRI exam along with mammogram is recommended if the patient's lifetime risk is 20% or greater. This exam was interpreted at Station ID: [id number]. NOTE: For mammograms, a report in lay terms will be sent to the patient. Approximately 15% of breast malignancies will not be visualized mammographically. In the management of a palpable breast mass, a negative mammogram must not discourage biopsy of a clinically suspicious lesion. Electronically Signed By: Jensen pulido/verena:09/01/2024 16:01:36 letter sent: Normal Exam ACR BI-RADS Category 1: Negative
== END ==
PROVIDERS: PCP Family Medicine; Referring Provider Family Medicine; Visit Provider Family Medicine
DX: Z12.31 Encounter for screening mammogram for malignant neoplasm of breast (principal); Z80.3 Family history of malignant neoplasm of breast; R92.333 Mammographic heterogeneous density, bilateral breasts; I08.0 Rheumatic disorders of both mitral and aortic valves; I47.10 Supraventricular tachycardia, unspecified; R01.1 Cardiac murmur, unspecified
CPT/HCPCS: 77063; 77067; 93306

== ENCOUNTER → 2025-08-24 13:53 | Outpatient (CLI) | payer MEDICARE, OTHER, SELFPAY ==
--- NOTE | 2025-08-24 13:54 | DI.RAD.S_ITS ---
PROCEDURE: XR DEXA AXIAL SKELETON INDICATIONS: Osteopenia COMPARISON: [facility], , XR DEXA AXIAL SKELETON, 08/16/2023, 15:31. FINDINGS: Lumbar Spine: Bone mineral density 1.076 g/cm2, T score -0.2, increased by 5.8%. Left Femoral Neck: Bone mineral density 0.715 g/cm2, T score -1.2. Left Hip: Bone mineral density 0.848 g/cm2, T score -0.8, no significant change compared to prior. Fracture Risk Calculation (when applicable): 10-year fracture risk of a major osteoporotic fracture 13 percent and of a hip fracture 3.2 percent. (T score greater or equal to -1.0 to: NORMAL) (T score from -1.1 to -2.4: OSTEOPENIA) (T score less than or equal to -2.5: OSTEOPOROSIS) IMPRESSION: Low bone mineral density (osteopenia) by WHO classification. Follow-up guidelines as follows: Osteoporosis: Consider a repeat DEXA and Vertebral Fracture Assessment (VFA) exam in 2 years or sooner if medically necessary, to reassess this patient's status. Osteopenia: Consider a repeat DEXA in 2-3 years to reassess this patient's status, or if there is a new clinical indication. Normal: Consider a repeat DEXA in 5 years or sooner, or if there is a new clinical indication. All treatment decisions require clinical judgment and consideration of individual patient factors, including patient preferences, comorbidities, previous drug use, risk factors not captured in the FRAX model (e.g., frailty, falls, vitamin D deficiency, increased bone turnover, interval significant decline in bone density ) and possible under- or over-estimation of fracture risk by FRAX. In addition, the NOF Guide recommends that FDA-approved medical therapies be considered in postmenopausal women and men age >= 50 years with a: * Hip or vertebral (clinical or morphometric) fracture * T-score of <=-2.5 at the spine or hip * Ten-year fracture probability by FRAX of >= 3% for hip fracture or >=20% for major osteoporotic fracture. Dictated by: Juan Carlos Clark M.D. on 08/24/2025 at 19:57 Approved by: Juan Carlos Clark M.D. on 08/24/2025 at 19:57
== END ==
LOC: RAD 13:54
PROVIDERS: PCP Family Medicine; Referring Provider Family Medicine; Visit Provider Family Medicine
DX: M85.89 Other specified disorders of bone density and structure, multiple sites (principal); M85.852 Other specified disorders of bone density and structure, left thigh
CPT/HCPCS: 77080

== ENCOUNTER → 2025-10-12 14:44 | Outpatient (CLI) | payer MEDICARE, OTHER, SELFPAY ==
--- NOTE | 2025-10-12 14:47 | DI.MG.S_ITS ---
MM screening mammo BI: 10/12/2025. BI-RADS: 1 CLINICAL: 70-year old female for bilateral screening mammogram. Tyrer-Cuzick lifetime risk of 5.3%. No personal or first-degree family history of breast cancer. Current reported family history of breast cancer: paternal aunt. PRIOR EXAMS 09/01/2024, 08/16/2023. MAMMOGRAPHY TECHNIQUE: 2D and 3D (tomosynthesis) digital mammographic views obtained, with additional images as needed for full coverage. Current study was also evaluated with a Computer Aided Detection (CAD) system. DENSITY C. The breasts are heterogeneously dense, which may obscure small masses. MAMMOGRAPHY FINDINGS Bilateral: No suspicious mass, asymmetry, microcalcification, or other abnormality seen. IMPRESSION: * No evidence of malignancy. RECOMMENDATIONS Bilateral * Annual screening mammography. OVERALL ASSESSMENT CATEGORY BI-RADS-1: Negative. The [employer] recommends annual screening mammography beginning at age 40 for women with average risk of breast cancer. ELECTRONICALLY SIGNED: Justin Richards M.D. on 10/14/2025 at 07:56:04 PM PT Interpreting Station ID: [id number]
== END ==
LOC: MAMMO 14:46
PROVIDERS: PCP Family Medicine; Referring Provider Family Medicine; Visit Provider Family Medicine
DX: Z12.31 Encounter for screening mammogram for malignant neoplasm of breast (principal); R92.333 Mammographic heterogeneous density, bilateral breasts; Z80.3 Family history of malignant neoplasm of breast
CPT/HCPCS: 77063; 77067